=== PATIENT | male | born 1955 | race American Indian/Alaskan Native ===

== ENCOUNTER 2018-05-28 01:06 | Emergency (ER) | payer MEDICARE, MEDICAID ==
[~2018-05-28] VITALS: Ht 177.8 cm; Wt 120.0 kg
[~2018-05-28 01:06] MED LIST: ASPI-41 PO; ATOR20TA66 PO; CARV6.253 PO; CLOP75TA35 PO; SACU1TAB PO; SPIR25TA PO
[2018-05-28 01:10] VITALS: BP 154/82
== END 2018-05-28 02:49 | disposition home or self-care (01) ==
LOC: ER 01:07
DX: S01.512A Laceration without foreign body of oral cavity, initial encounter (principal); G89.29 Other chronic pain; Z90.49 Acquired absence of other specified parts of digestive tract; Z88.5 Allergy status to narcotic agent; Z79.82 Long term (current) use of aspirin; Z79.899 Other long term (current) drug therapy; W45.8XXA Other foreign body or object entering through skin, initial encounter; Y93.89 Activity, other specified; Y92.89 Other specified places as the place of occurrence of the external cause; Y99.8 Other external cause status
CPT/HCPCS: 99282

== ENCOUNTER 2018-06-15 15:00 | Emergency (ER) | payer MEDICARE, MEDICAID ==
[~2018-06-15] VITALS: Ht 177.8 cm; Wt 110.0 kg
[2018-06-15 17:40] LABS: ALBUMIN 3.8 G/DL (3.4-5.0); ANION GAP 8 (8-16); BLOOD UREA NITROGEN 19 MG/DL (7-18); BUN/CREATININE RATIO 18.8 (5.4-32.0); CALCIUM 8.9 MG/DL (8.5-10.1); CHLORIDE 101 MMOL/L (99-107); CREATININE 1.01 MG/DL (0.60-1.10); GLUCOSE 89 MG/DL (70-104); POTASSIUM 4.2 MMOL/L (3.5-5.1); SODIUM 137 MMOL/L (135-145); TOTAL CARBON DIOXIDE 27.8 MMOL/L (24-32); eGFR 75 ML/MIN
[2018-06-15] MEDS ORDERED: ketorolac tromethamine 15mg/ml inj. IM ONE (17:50)
[2018-06-15] MEDS ORDERED: COLC1TAB2 PO (17:56)
[2018-06-15] MEDS ORDERED: PRED50TA PO (17:56)
[2018-06-15 18:06] VITALS: BP 125/89
== END 2018-06-15 18:07 | disposition home or self-care (01) ==
LOC: ER 15:01
DX: M25.572 Pain in left ankle and joints of left foot (principal); I10 Essential (primary) hypertension; F12.90 Cannabis use, unspecified, uncomplicated; Z90.49 Acquired absence of other specified parts of digestive tract; Z98.890 Other specified postprocedural states; Z88.5 Allergy status to narcotic agent; Z79.82 Long term (current) use of aspirin; Z79.899 Other long term (current) drug therapy
CPT/HCPCS: 36415; 80048; 84550; 96372; 99284; J1885

== ENCOUNTER 2018-12-10 05:39 | Day surgery (SDC) | payer MEDICARE, MEDICAID ==
[2018-12-03 10:51] LABS: BASOPHILS % (AUTO) 0.6 % (0-1); EOSINOPHILS # (AUTO) 0.2 X10'3 (0-0.9); EOSINOPHILS % (AUTO) 2.8 % (0-6); LYMPHOCYTES # (AUTO) 1.7 X10'3 (1.1-4.8); LYMPHOCYTES % (AUTO) 25.2 % (21-51); MEAN CORPUSCULAR HEMOGLOBIN 30.5 PG (27.0-31.0); MEAN CORPUSCULAR HGB CONC 33.2 % (33.0-36.5); MEAN PLATELET VOLUME 8.6 FL (7.4-10.4); MONOCYTES # (AUTO) 0.6 X10'3 (0-0.9); MONOCYTES % (AUTO) 8.6 % (2-12); NEUTROPHILS # (AUTO) 4.4 X10'3 (1.8-7.7); NEUTROPHILS % (AUTO) 62.8 % (42-75); PRE OP HEMOGLOBIN 13.3 g/dL (14.0-17.9); PRE OP PLATELET COUNT 166 X10'3 (140-440); RED BLOOD COUNT 4.35 X10'6 (4.70-6.10); RED CELL DISTRIBUTION WIDTH 12.8 % (11.5-14.5)
[2018-12-03 11:00] LABS: ALBUMIN 3.5 G/DL (3.4-5.0); ALKALINE PHOSPHATASE 78 IU/L (46-116); BLOOD UREA NITROGEN 22 MG/DL (7-18); BUN/CREATININE RATIO 19.5 (5.4-32.0); CALCIUM 8.6 MG/DL (8.5-10.1); CHLORIDE 106 MMOL/L (99-107); CREATININE 1.13 MG/DL (0.60-1.10); PRE OP ALT 17 U/L (30-65); PRE OP ANION GAP 7 (8-16); PRE OP AST 10 U/L (10-37); PRE OP BILIRUB, TOTAL 0.2 MG/DL (0.0-1.0); PRE OP GLUCOSE 75 MG/DL (70-104); PRE OP POTASSIUM 4.5 MMOL/L (3.4-5.1); PRE OP SODIUM 141 MMOL/L (135-145); TOTAL CARBON DIOXIDE 27.6 MMOL/L (24-32); TOTAL PROTEIN 6.9 G/DL (6.4-8.2); eGFR 65 ML/MIN
[2018-12-03 11:03] LABS: PRE OP PROTIME 10.2 SECONDS (9.0-12.0)
[2018-12-10] VITALS (8 sets, daily range): BP systolic 136–163; BP diastolic 36–86
[~2018-12-10] VITALS: Ht 177.8 cm; Wt 113.4 kg
[~2018-12-10 05:39] MED LIST changes: -ASPI-41 PO; -ATOR20TA66 PO; +ATOR40TA71 PO; +CARV-49 PO; -CARV6.253 PO; +DOCUMENT DATE & TIME OF BETA-BLOCKER PO ONE; +cefazolin/dext.iso 2gm/100 ML IV ONE; +famotidine 20mg tablet PO ONE; +ringers solution, lacted 1,000 ML IV SCH
[2018-12-10] MEDS ORDERED: LIDOcaine 1% (10mg/ml) 2ml vial ONE (06:14)
[2018-12-10] MEDS ORDERED: LIDOcaine 0.5% (5mg/ml) 50ml vial ONE (07:20)
[2018-12-10] MEDS ORDERED: fentaNYL/PF 50MCG/1 ML 2ML syringe ONE (08:04)
[2018-12-10] MEDS ORDERED: BUPIVAcaine/PF 2.5mg/ml (0.25%) 10ml vial ONE ×2 (08:17→08:49)
[2018-12-10] MEDS ORDERED: midazolam 2 mg/2 ml injection ONE (08:23)
[2018-12-10] MEDS ORDERED: hydrALAZINE 20mg/ml inj. IV ONE (08:23)
[2018-12-10] MEDS ORDERED: ringers solution, lacted 1,000 ML IV SCH (08:48)
[2018-12-10] MEDS ORDERED: meperidine/PF 25mg/ml syringe IV PRN ×2 (08:50)
[2018-12-10] MEDS ORDERED: ondansetron/PF 4mg/2ml inj IV PRN (08:50)
[2018-12-10] MEDS ORDERED: morphine 4 MG/ML inj SYRINge IV PRN ×2 (08:50)
[2018-12-10] MEDS ORDERED: proCHLORperazine 10 MG/2 ml inj IV PRN (08:50)
[2018-12-10] MEDS ORDERED: propofol inj 20 ML IV ONE (08:53)
--- NOTE | 2018-12-10 09:10 | NUR ---
Received from OR via BED, accompanied by Anesthesiologist DR CEDILLO and report given by Anesthesiolgist. PATIENT A&OX4, DENIES PAIN, V/S WNL, NEUROVASCULAR CHECKS INTACT, 20G PIV RUE, SCD ON, DRESSING TO LEFT WRIST CDI ELEVATED WITH ICEBAG APPLIED.
[2018-12-10] MEDS: meperidine/PF 25mg/ml syringe IV PRN ×2 (09:16→09:25)
--- NOTE | 2018-12-10 10:00 | NUR ---
PATIENT A&OX4, DENIES PAIN, V/S WNL, NEUROVASCULAR CHECKS INTACT, 20G PIV RUE D/C, SCD OFF, DRESSING TO LEFT WRIST CDI ELEVATED WITH ICEBAG APPLIED. I HAVE REVIEWED D/C INSTRUCTIONS WITH PATIENT AND FAMILY AND THEY HAVE VERBALIZED UNDERSTANDING. PATIENT D/C HOME WITH ALL BELONGINGS AND FAMILY GAVE TRANSPORT HOME.
== END 2018-12-10 10:00 | disposition home or self-care (01) ==
LOC: PAS 05:39
PROVIDERS: ATTEND Orthopaedic Surgery Hand Surgery
DX: G56.02 Carpal tunnel syndrome, left upper limb (principal); G56.22 Lesion of ulnar nerve, left upper limb; I10 Essential (primary) hypertension; I25.2 Old myocardial infarction; I25.10 Atherosclerotic heart disease of native coronary artery without angina pectoris; E78.5 Hyperlipidemia, unspecified; I42.9 Cardiomyopathy, unspecified; I34.1 Nonrheumatic mitral (valve) prolapse; I07.1 Rheumatic tricuspid insufficiency; M19.90 Unspecified osteoarthritis, unspecified site; Z88.6 Allergy status to analgesic agent; Z79.899 Other long term (current) drug therapy; Z90.49 Acquired absence of other specified parts of digestive tract; Z98.890 Other specified postprocedural states
CPT/HCPCS: 29848; 36415; 64718; 80053; 85025; 85610; 85730; 93005; A6449; J0360; J0690; J2001; J2175; J2250; J2704; J3010; J3490; A7000; J7120

== ENCOUNTER 2019-12-03 09:27 | Observation (INO) | payer MEDICARE, MEDICAID ==
[~2019-12-03] VITALS: Ht 177.8 cm; Wt 109.3 kg
[~2019-12-03 09:27] MED LIST changes: -DOCUMENT DATE & TIME OF BETA-BLOCKER PO ONE; -cefazolin/dext.iso 2gm/100 ML IV ONE; -famotidine 20mg tablet PO ONE; -ringers solution, lacted 1,000 ML IV SCH
[2019-12-03 09:55] LABS: BASOPHILS # (AUTO) 0.1 X10'3 (0-0.2); BASOPHILS % (AUTO) 1.4 % (0-1); EOSINOPHILS # (AUTO) 0.3 X10'3 (0-0.9); EOSINOPHILS % (AUTO) 4.1 % (0-6); HEMATOCRIT 40.5 % (42.0-52.0); HEMOGLOBIN 13.6 g/dl (14.0-17.9); LYMPHOCYTES # (AUTO) 1.8 X10'3 (1.1-4.8); LYMPHOCYTES % (AUTO) 23.2 % (21-51); MEAN CORPUSCULAR HGB CONC 33.7 g/dL (33.0-36.5); MEAN CORPUSCULAR VOLUME 89.3 FL (78-98); MONOCYTES # (AUTO) 0.9 X10'3 (0-0.9); MONOCYTES % (AUTO) 11.3 % (2-12); NEUTROPHILS # (AUTO) 4.7 X10'3 (1.8-7.7); PLATELET COUNT 208 X10'3 (140-440); RED BLOOD COUNT 4.53 X10'6 (4.70-6.10); RED CELL DISTRIBUTION WIDTH 13.4 % (11.5-14.5); WHITE BLOOD COUNT 7.9 X10'3 (4.5-11.0)
[2019-12-03 10:13] LABS: ALANINE AMINOTRANSFERASE 28 U/L (12-78); ALBUMIN 3.4 G/DL (3.4-5.0); ALBUMIN/GLOBULIN RATIO 1.1 (1.1-1.5); ALKALINE PHOSPHATASE 77 IU/L (46-116); ANION GAP 7 (8-16); ASPARTATE AMINO TRANSFERASE 36 U/L (10-37); BILIRUBIN,TOTAL 0.4 MG/DL (0.1-1.0); BLOOD UREA NITROGEN 14 MG/DL (7-18); BUN/CREATININE RATIO 13.7 (5.4-32.0); CALCIUM 8.1 MG/DL (8.5-10.1); CHLORIDE 104 MMOL/L (99-107); CREATININE 1.02 MG/DL (0.60-1.10); GLUCOSE 88 MG/DL (70-104); SODIUM 139 MMOL/L (135-145); TOTAL CARBON DIOXIDE 27.8 MMOL/L (24-32); TOTAL PROTEIN 6.6 G/DL (6.4-8.2); eGFR 73 ML/MIN
[2019-12-03] MEDS ORDERED: metoprolol tartrate 1mg/ml inj IV PRN (11:20)
[2019-12-03] MEDS ORDERED: potassium CL 10mEq/100ml bag 100 ML IV PRN ×2 (11:20)
[2019-12-03] MEDS ORDERED: bisacodyl 10mg suppository rectal RC PRN (11:20)
[2019-12-03] MEDS ORDERED: acetaminophen 650mg rectal suppository RC PRN (11:20)
[2019-12-03] MEDS ORDERED: regadenoson 0.4mg/5ml syringe IV ONE (11:20)
[2019-12-03] MEDS ORDERED: mag hydrox/Alum hydrox/simeth 30ml oral suspension PO PRN (11:20)
[2019-12-03] MEDS ORDERED: magnesium Cl slow-release 64mg tablet PO PRN (11:20)
[2019-12-03] MEDS ORDERED: potassium Cl 20 mEq SR tablet PO PRN ×2 (11:20)
[2019-12-03] MEDS ORDERED: magnesium hydroxide 30ml (MOM) UD suspension PO PRN (11:20)
[2019-12-03] MEDS: normal saline 1000ml 1,000 ML IV SCH ×2 (11:20→21:20)
[2019-12-03] MEDS ORDERED: magnesium 4gm in 100ml NS 100 ML IV PRN (11:20)
[2019-12-03] MEDS ORDERED: magnesium 2GM in 50ml NS 50 ML IV PRN (11:20)
[2019-12-03] MEDS ORDERED: nitroGLYCERIN 0.4mg SUBLingual tab SL PRN (11:20)
[2019-12-03] MEDS ORDERED: ondansetron/PF 4mg/2ml inj IV PRN (11:20)
[2019-12-03] MEDS ORDERED: acetaminophen 325mg tablet PO PRN ×2 (11:20)
[2019-12-03] MEDS ORDERED: aminophylline 250mg/10ml inj. IV PRN (11:20)
[2019-12-03] MEDS ORDERED: diphenhydrAMINE 25mg capsule PO PRN (11:20)
--- NOTE | 2019-12-03 12:05 | NUR ---
PT COMPLAINING OF INCRESED CP, RATES 3/10 AT THIS TIME. ADMINISTERED PRN NITRO AND REPEATED EKG. PAGED HOSPITALIST TO UPDATE.
[2019-12-03 12:35] VITALS: BP 148/84
--- NOTE | 2019-12-03 12:47 | NUR ---
Patient in room PCU 3016. I have received report from CHADD Webster RN and had the opportunity to ask questions and assume patient care. Patient arrived on unit, able to ambulate to bed, VSS, no acute distress, IV fluids started per order, will continue to monitor.
[2019-12-03 15:00] VITALS: BP 151/85
[2019-12-03] MEDS ORDERED: regadenoson 0.4mg/5ml syringe IV PRN (16:15)
--- NOTE | 2019-12-03 18:15 | NUR ---
Problems reprioritized. Patient report given, questions answered & plan of care reviewed with LEELA Merino.
[2019-12-03 19:00] VITALS: BP 130/84
[2019-12-03] MEDS: carvedilol 6.25mg tablet PO SCH (19:58)
[2019-12-03] MEDS ORDERED: heparin, porcine 5000 units/ml vial SQ SCH (20:00)
[2019-12-03] MEDS ORDERED: K and/or MAG REPLACEMENT MC SCH (20:00)
[2019-12-03] MEDS ORDERED: sacubitril/valsartan 24mg-26mg tablet PO SCH (20:00)
[2019-12-03 23:00] VITALS: BP 135/79
[2019-12-04] VITALS (11 sets, daily range): BP systolic 106–127; BP diastolic 61–91
[2019-12-04 05:59] LABS: BASOPHILS # (AUTO) 0.1 X10'3 (0-0.2); BASOPHILS % (AUTO) 0.6 % (0-1); EOSINOPHILS # (AUTO) 0.2 X10'3 (0-0.9); EOSINOPHILS % (AUTO) 2.6 % (0-6); HEMATOCRIT 38.1 % (42.0-52.0); HEMOGLOBIN 12.9 g/dl (14.0-17.9); LYMPHOCYTES # (AUTO) 2.2 X10'3 (1.1-4.8); LYMPHOCYTES % (AUTO) 28.4 % (21-51); MEAN CORPUSCULAR HEMOGLOBIN 30.2 PG (27.0-31.0); MEAN PLATELET VOLUME 8.2 FL (7.4-10.4); MONOCYTES # (AUTO) 0.6 X10'3 (0-0.9); MONOCYTES % (AUTO) 7.5 % (2-12); NEUTROPHILS # (AUTO) 4.7 X10'3 (1.8-7.7); NEUTROPHILS % (AUTO) 60.9 % (42-75); PLATELET COUNT 187 X10'3 (140-440); RED BLOOD COUNT 4.28 X10'6 (4.70-6.10); RED CELL DISTRIBUTION WIDTH 13.7 % (11.5-14.5); WHITE BLOOD COUNT 7.7 X10'3 (4.5-11.0)
--- NOTE | 2019-12-04 06:07 | NUR ---
Patient in room PCU 3016. I have received report from Angelique SWENSON and had the opportunity to ask questions and assume patient care. Will continue to monitor patient.
[2019-12-04] MEDS: carvedilol 6.25mg tablet PO SCH (07:19)
[2019-12-04 07:25] LABS: ALANINE AMINOTRANSFERASE 25 U/L (12-78); ALKALINE PHOSPHATASE 54 IU/L (46-116); ANION GAP 6 (8-16); ASPARTATE AMINO TRANSFERASE 18 U/L (10-37); BILIRUBIN,TOTAL 0.4 MG/DL (0.1-1.0); BLOOD UREA NITROGEN 12 MG/DL (7-18); CALCIUM 8.1 MG/DL (8.5-10.1); CHLORIDE 106 MMOL/L (99-107); CHOL/HDL RATIO 2.3 (0.00-4.99); CHOLESTEROL 102 MG/DL (0-200); CREATININE 1.09 MG/DL (0.60-1.10); GLUCOSE 87 MG/DL (70-104); HDL CHOLESTEROL 45 MG/DL (35-60); LDL CHOLESTEROL 49 MG/DL (50-100); MAGNESIUM 1.5 MG/DL (1.5-2.4); PHOSPHORUS 2.9 MG/DL (2.3-4.5); POTASSIUM 4.1 MMOL/L (3.5-5.1); SODIUM 141 MMOL/L (135-145); TOTAL CARBON DIOXIDE 29.5 MMOL/L (24-32); TRIGLYCERIDES 58 MG/DL (20-135); eGFR 68 ML/MIN
[2019-12-04] MEDS ORDERED: atorvastatin 20mg tablet PO SCH (08:00)
[2019-12-04] MEDS ORDERED: spironolactone 25 MG tablet PO SCH (08:00)
[2019-12-04] MEDS ORDERED: clopidogrel 75mg tablet PO SCH (08:00)
[2019-12-04] MEDS ORDERED: aminophylline inj. 10 ML IV ONE (11:19)
[2019-12-04] MEDS ORDERED: regadenoson 0.4mg/5ml syringe IV ONE (11:20)
--- NOTE | 2019-12-04 13:32 | NUR ---
Sent page to Dr. Macedo: [id number] Raza Fischer: Lizzette results are in and appear to be negative. Thank you, Mackenzie [phone]
[2019-12-04] MEDS ORDERED: PANT40TA4 PO (14:35)
[2019-12-04] MEDS ORDERED: NITR0.4T51 SL (14:35)
--- NOTE | 2019-12-04 16:41 | NUR ---
Patient stable for discharge per MD order. All discharge information and education reviewed with patient before signing necessary paperwork. IV discontinued with catheter in tact, surveillance monitor removed, all patient belongings packed up and sent with patient. Daughter took him home in private vehicle.
--- NOTE | 2019-12-07 08:57 | NUR ---
Case Management DC follow up: spoke w/pt via telephone. Feeling fine, denies cp, SOB, dizziness, NV at this time. Understands mediations and why prescribed, Agrees to follow up w/PHP, management scientist. No further questions at this time.
== END 2019-12-04 16:30 | disposition home or self-care (01) ==
LOC: ER 09:28 → ED HOLD 11:20 → PCU 3S 12:30
PROVIDERS: ADMIT Family Medicine; ATTEND Family Medicine
DX: R07.89 Other chest pain (principal); I11.0 Hypertensive heart disease with heart failure; I50.22 Chronic systolic (congestive) heart failure; I24.9 Acute ischemic heart disease, unspecified; I25.10 Atherosclerotic heart disease of native coronary artery without angina pectoris; E78.5 Hyperlipidemia, unspecified; E78.00 Pure hypercholesterolemia, unspecified; Z95.5 Presence of coronary angioplasty implant and graft; Z90.49 Acquired absence of other specified parts of digestive tract; Z79.899 Other long term (current) drug therapy; Z88.5 Allergy status to narcotic agent
CPT/HCPCS: 36415; 71045; 78452; 80053; 80061; 83036; 83735; 84100; 84484; 85025; 87081; 93005; 93017; 93306; 96372; 99284; A9500; G0378; J0280; J1644; J7030; J2785

== ENCOUNTER 2021-11-13 07:22 | Emergency (ER) | payer MEDICARE, MEDICAID ==
[~2021-11-13] VITALS: Ht 177.8 cm; Wt 124.0 kg
[~2021-11-13 07:22] MED LIST changes: +CLOP75TA34 PO; -CLOP75TA35 PO; +NITR0.4T51 SL; +PANT40TA54 PO
[2021-11-13 09:12] LABS: BASOPHILS # (AUTO) 0.1 X10'3 (0-0.2); BASOPHILS % (AUTO) 0.2 % (0-1); EOSINOPHILS # (AUTO) 0.1 X10'3 (0-0.9); EOSINOPHILS % (AUTO) 0.2 % (0-6); HEMATOCRIT 40.2 % (42.0-52.0); HEMOGLOBIN 13.2 g/dl (14.0-17.9); LYMPHOCYTES # (AUTO) 0.9 X10'3 (1.1-4.8); MEAN CORPUSCULAR HEMOGLOBIN 28.8 PG (27.0-31.0); MEAN CORPUSCULAR HGB CONC 32.7 g/dL (33.0-36.5); MEAN CORPUSCULAR VOLUME 88.1 FL (78-98); MEAN PLATELET VOLUME 7.8 FL (7.4-10.4); MONOCYTES # (AUTO) 1.7 X10'3 (0-0.9); MONOCYTES % (AUTO) 6.1 % (2-12); NEUTROPHILS # (AUTO) 25.5 X10'3 (1.8-7.7); NEUTROPHILS % (AUTO) 90.5 % (42-75); PLATELET COUNT 213 X10'3 (140-440); RED BLOOD COUNT 4.56 X10'6 (4.70-6.10); RED CELL DISTRIBUTION WIDTH 14.4 % (11.5-14.5)
[2021-11-13 09:16] LABS: WHITE BLOOD COUNT 28.2 X10'3 (4.5-11.0)
[2021-11-13] MEDS ORDERED: CefTRIAXone 2gm/D5W 50ml BAG 50 ML IV ONE (09:20)
[2021-11-13] MEDS ORDERED: normal saline 1000ML IV soln IV ONE (09:20)
[2021-11-13] MEDS ORDERED: ondansetron/PF 4mg/2ml inj IV ONE (09:25)
[2021-11-13] MEDS ORDERED: morphine 4 MG/ML inj SYRINge IV PRN (09:25)
[2021-11-13 09:29] LABS: ALANINE AMINOTRANSFERASE 21 U/L (12-78); ALBUMIN 3.3 G/DL (3.4-5.0); ALBUMIN/GLOBULIN RATIO 0.7 (1.1-1.5); ALKALINE PHOSPHATASE 73 IU/L (46-116); ANION GAP 9 (8-16); ASPARTATE AMINO TRANSFERASE 13 U/L (10-37); BILIRUBIN,TOTAL 0.8 MG/DL (0.1-1.0); BLOOD UREA NITROGEN 23 MG/DL (7-18); BUN/CREATININE RATIO 15.6 (5.4-32.0); CALCIUM 8.8 MG/DL (8.5-10.1); CHLORIDE 101 MMOL/L (99-107); CREATININE 1.47 MG/DL (0.60-1.10); GLUCOSE 119 MG/DL (70-104); POTASSIUM 4.7 MMOL/L (3.5-5.1); SODIUM 138 MMOL/L (135-145); TOTAL CARBON DIOXIDE 28.2 MMOL/L (24-32); TOTAL PROTEIN 7.9 G/DL (6.4-8.2); eGFR 48 ML/MIN
[2021-11-13 09:57] LABS: PLATELET ESTIMATE NORMAL; TOTAL CELLS COUNTED 100
[2021-11-13 10:19] LABS: CLARITY,URINE CLEAR (Clear); COLOR,URINE YELLOW (Yellow); GLUCOSE, URINE NEGATIVE (Neg); KETONES,URINE NEGATIVE (Neg); LEUKOCYTE ESTERASE ,URINE NEGATIVE (Neg); NITRITES, URINE NEGATIVE (Neg); OCCULT BLOOD,URINE MODERATE (Neg); PROTEIN,URINE NEGATIVE (Neg); UA COLLECTION TYPE VOIDED; UROBILINOGEN,URINE 0.2 E.U/dL (0.2-1.0)
[2021-11-13] MEDS ORDERED: CEPH250T PO (10:32)
[2021-11-13] MEDS ORDERED: DOXY100C77 PO (10:32)
[2021-11-13] MEDS ORDERED: TRAM50TA2 PO (10:32)
[2021-11-13 11:01] LABS: MUCUS STRANDS FEW /LPF (Neg); SQUAMOUS EPITHELIAL CELL,UR FEW /LPF (FEW)
[2021-11-13 11:04] LABS: BACTERIA,URINE 3+ /HPF (Neg)
[2021-11-13 11:50] VITALS: BP 170/67
[2021-11-13 12:13] LABS: URINE AMPHETAMINE SCREEN POSITIVE (Neg); URINE BARBITUATE SCREEN NEGATIVE (Neg); URINE BENZODIAZEPINES SCREEN NEGATIVE (Neg); URINE CANNABINOID SCREEN POSITIVE (Neg); URINE COCAINE SCREEN NEGATIVE (Neg); URINE METHADONE SCREEN NEGATIVE (Neg); URINE OPIATE SCREEN NEGATIVE (Neg); URINE PHENCYCLIDINE SCREEN NEGATIVE (Neg)
== END 2021-11-13 11:53 | disposition home or self-care (01) ==
LOC: ER 07:23
DX: N45.1 Epididymitis (principal); N50.89 Other specified disorders of the male genital organs; N50.811 Right testicular pain; I25.10 Atherosclerotic heart disease of native coronary artery without angina pectoris; I10 Essential (primary) hypertension; G89.29 Other chronic pain; F12.90 Cannabis use, unspecified, uncomplicated; Z90.49 Acquired absence of other specified parts of digestive tract; Z98.890 Other specified postprocedural states; Z72.89 Other problems related to lifestyle; Z88.5 Allergy status to narcotic agent; Z79.2 Long term (current) use of antibiotics; Z79.899 Other long term (current) drug therapy
CPT/HCPCS: 36415; 74176; 76870; 80053; 80305; 81001; 83605; 84145; 85007; 85025; 87040; 87077; 87088; 87186; 87491; 87591; 93976; 96365; 96375; 99285; J0696; J2270; J2405; J7030; 96361; 96374